=== PATIENT | female | born 1990 | race Caucasian/White ===

== ENCOUNTER 2017-12-24 23:41 | Inpatient (IN) | payer OTHER ==
[~2017-12-24] VITALS: Ht 160 cm; Wt 69.9 kg
[2017-12-25] MEDS ORDERED: RINGERS SOLUTION,LACTATED 1,000 ML IV ONE (00:02)
[2017-12-25 00:18] LABS: GLUCOMETER DEV NAME(LOC) 4S 8; GLUCOSE,POINT OF CARE 95 MG/DL (70-110)
[2017-12-25] MEDS ORDERED: METF500T4 PO (00:22)
[2017-12-25] MEDS ORDERED: PREN1TAB80 PO (00:22)
[2017-12-25] MEDS ORDERED: RINGERS SOLUTION,LACTATED 1,000 ML IV PRN (00:47)
[2017-12-25] MEDS ORDERED: LIDOCAINE HCL/PF 1% 30 ML VIAL INJ PRN (01:00)
[2017-12-25] MEDS ORDERED: MISOPROSTOL 25 MCG TABLET VG ONE (01:00)
[2017-12-25] MEDS ORDERED: CITRIC ACID/SODIUM CITRATE 30 ML SOLUTION UDCUP PO PRN (01:00)
[2017-12-25] MEDS ORDERED: METOCLOPRAMIDE HCL 5 MG/ML 2 ML VIAL IVP PRN (01:00)
[2017-12-25 01:33] LABS: BASOPHILS % (AUTO) 0.7 % (0.0-2.0); EOSINOPHILS % (AUTO) 0.9 % (1.0-6.0); HEMOGLOBIN 11.9 g/dL (12.0-16.0); LYMPHOCYTES # (AUTO) 1.6 K/uL (1.0-4.8); LYMPHOCYTES % (AUTO) 15.7 % (22.0-44.0); MEAN CORPUSCULAR HEMOGLOBIN 29.2 pg (26.0-34.0); MEAN CORPUSCULAR HGB CONC 33.9 G/dL (31.0-37.0); MEAN CORPUSCULAR VOLUME 86 fL (80-100); MONOCYTES # (AUTO) 0.8 K/uL (0.1-1.0); MONOCYTES % (AUTO) 7.6 % (2.0-9.0); NEUTROPHILS # (AUTO) 7.7 K/uL (1.8-7.7); NEUTROPHILS % (AUTO) 75.1 % (40.0-70.0); PLATELET COUNT (AUTO)-OB 243 K/uL (150-450); RED BLOOD CELL COUNT(AUTO) 4.07 MIL/uL (4.00-5.20); RED CELL DISTRIBUTION WIDTH 13.1 % (11.5-14.5)
[2017-12-25] MEDS: RINGERS SOLUTION,LACTATED 1,000 ML IV SCH ×4 (02:31→06:15)
[2017-12-25 03:43] VITALS: BP 121/81
[2017-12-25] MEDS: FentaNYL CITRATE-PF 100 MCG/2 ML VIAL IVP PRN ×2 (04:01→04:08)
[2017-12-25] MEDS ORDERED: INFLUENZA VIRUS VACCINE QVS 2017-18 (3YR+)/PF 60 MCG/0.5 ML SYRINGE IM ONE (04:30)
[2017-12-25] MEDS ORDERED: BUPIVACAINE HCL/PF 0.25% 10 ML VIAL ONE (05:18)
[2017-12-25] MEDS ORDERED: ROPIVACAINE HCL 0.2% 100 ML ED ONE (05:18)
[2017-12-25] MEDS ORDERED: LIDOCAINE HCL/PF 2% 5 ML VIAL ONE (05:18)
[2017-12-25] MEDS ORDERED: ROPIVACAINE HCL 0.2% 100 ML ED PRN (06:04)
[2017-12-25] MEDS ORDERED: ONDANSETRON HCL 4 MG/2 ML VIAL IVP PRN (06:15)
[2017-12-25] MEDS ORDERED: NALBUPHINE HCL 10 MG/ML VIAL IVP PRN ×2 (06:15)
[2017-12-25] MEDS ORDERED: DiphenhydrAMINE HCL 50 MG/ML VIAL IVP PRN (06:15)
[2017-12-25] MEDS ORDERED: PROMETHAZINE HCL 12.5 MG in SODIUM CHLORIDE 0.9% 50 ML IV PRN (06:15)
[2017-12-25] MEDS ORDERED: OXYTOCIN 30 UNITS/LACT RINGERS 500 ML IV PRN (06:57)
[2017-12-25 07:37] LABS: GLUCOMETER DEV NAME(LOC) 4S 8; GLUCOSE,POINT OF CARE 88 MG/DL (70-110)
[2017-12-25] MEDS ORDERED: GENTAMICIN 80 MG/NACL ISO-OSM 100 ML IV ONE (11:28)
[2017-12-25] MEDS ORDERED: GENTAMICIN 80 MG/NACL ISO-OSM 50 ML IV ONE (11:45)
[2017-12-25] MEDS ORDERED: ACETAMINOPHEN/CODEINE 300-30 MG TABLET PO PRN ×2 (12:00)
[2017-12-25] MEDS ORDERED: GLYCERIN/WITCH HAZEL LEAF 40 PADS JAR TP PRN (12:00)
[2017-12-25] MEDS ORDERED: BENZOCAINE 20%/MENTHOL 56 GM SPRAY CANISTER TP PRN (12:00)
[2017-12-25] MEDS ORDERED: SENNA/DOCUSATE SODIUM 187-50 MG TABLET PO ONE (12:15)
[2017-12-25 12:43] LABS: GLUCOSE,POINT OF CARE 70 MG/DL (70-110)
[2017-12-25 12:43] LABS: GLUCOSE,POINT OF CARE 56 MG/DL (70-110)
[2017-12-25] MEDS: LANOLIN 7 GM OINTMENT TP PRN (12:45)
[2017-12-25] MEDS: IBUPROFEN 800 MG TABLET PO SCH ×2 (12:58→19:03)
[2017-12-25] MEDS: MAGNESIUM HYDROXIDE SUSPENSION 30 ML UDCUP PO SCH (20:58)
[2017-12-26] MEDS: IBUPROFEN 800 MG TABLET PO SCH ×2 (01:06→06:48)
[2017-12-26] MEDS: LANOLIN 7 GM OINTMENT TP PRN (06:53)
[2017-12-26] MEDS: MAGNESIUM HYDROXIDE SUSPENSION 30 ML UDCUP PO SCH (08:58)
[2017-12-26] MEDS ORDERED: IBUP-2070 PO (10:31)
== END 2017-12-26 12:20 | disposition home or self-care (01) | DRG 775 ==
LOC: 4S 23:41 → OBSVTOIN 23:41
PROVIDERS: ADMIT Obstetrics & Gynecology; ATTEND Obstetrics & Gynecology
PROC: 10E0XZZ Delivery of Products of Conception, External Approach (ICD-10-PCS; principal; 2017-12-25)
PROC: 3E0R3BZ Introduction of Anesthetic Agent into Spinal Canal, Percutaneous Approach (ICD-10-PCS; 2017-12-25)
PROC: 00HU33Z Insertion of Infusion Device into Spinal Canal, Percutaneous Approach (ICD-10-PCS; 2017-12-25)
DX: O69.81X0 Labor and delivery complicated by cord around neck, without compression, not applicable or unspecified (principal); Z37.0 Single live birth; Z3A.39 39 weeks gestation of pregnancy
CPT/HCPCS: 82962; 83036; 86850; 86900; 86901; 90471; J1580; J2405; J2590; J2795; J3010; J3490; J7120